=== PATIENT | female | born 1975 | race Caucasian/White ===

== ENCOUNTER 2022-04-29 00:01 | Emergency (ER) | payer MEDICAID, OTHER ==
[~2022-04-29] VITALS: Ht 170.2 cm; Wt 74.8 kg
--- NOTE | 2022-04-29 00:47 | NUR ---
Patient placed in room 3A at this time.
[2022-04-29] MEDS ORDERED: CYCLOBENZAPRINE HCL 10 MG TABLET PO ONE (02:00)
[2022-04-29] MEDS ORDERED: DIAZEPAM 10 MG/2 ML DISP.SYRIN IV ONE ×2 (02:00→04:30)
[2022-04-29] MEDS ORDERED: IV NORMAL SALINE 1000 ML BAG IV ONE (02:00)
[2022-04-29] MEDS ORDERED: CYCLOBENZAPRINE HCL 10 MG TABLET ONE (02:11)
[2022-04-29] MEDS ORDERED: DIAZEPAM 10 MG/2 ML DISP.SYRIN ONE ×2 (02:12→04:48)
[2022-04-29] MEDS ORDERED: HYDROCODONE/APAP 5-325MG TABLET PO ONE (03:00)
[2022-04-29] MEDS ORDERED: HYDROCODONE/APAP 5-325MG TABLET ONE (03:03)
[2022-04-29] MEDS ORDERED: METHOCARBAMOL 500 MG TABLET PO ONE (04:30)
[2022-04-29] MEDS ORDERED: METHOCARBAMOL 500 MG TABLET ONE (04:48)
--- NOTE | 2022-04-29 05:20 | NUR ---
Patient was taken to CT.
--- NOTE | 2022-04-29 05:33 | NUR ---
Patient returned from CT.
[2022-04-29] MEDS ORDERED: MORPHINE SULFATE 4 MG/1 ML DISP.SYRIN IV ONE (06:15)
[2022-04-29] MEDS ORDERED: IV NORMAL SALINE 500 ML BAG IV ONE (06:15)
[2022-04-29] MEDS ORDERED: MORPHINE SULFATE 4 MG/1 ML DISP.SYRIN ONE (06:21)
--- NOTE | 2022-04-29 07:20 | NUR ---
Gave report to Fredrick MILAN.
--- NOTE | 2022-04-29 07:30 | NUR ---
Rassessment done in previous shift, not noted.
[2022-04-29] MEDS ORDERED: DICL100G31 TP (09:25)
[2022-04-29] MEDS ORDERED: HYDR-4209 PO (09:25)
--- NOTE | 2022-04-29 09:30 | NUR ---
Pt still c/o 08/29 left leg pain. Pt given RX and d/c instructions, pt verbalized understanding. Instructed not to drive.
--- NOTE | 2022-04-29 09:31 | NUR ---
Removed IV intact, site benign, bandaged.
== END 2022-04-29 09:49 | disposition home or self-care (01) ==
LOC: ER 00:08
DX: S76.892A Other injury of other specified muscles, fascia and tendons at thigh level, left thigh, initial encounter (principal); X50.0XXA Overexertion from strenuous movement or load, initial encounter; Y93.01 Activity, walking, marching and hiking; Y92.89 Other specified places as the place of occurrence of the external cause; Z88.6 Allergy status to analgesic agent; R26.2 Difficulty in walking, not elsewhere classified; M79.652 Pain in left thigh
CPT/HCPCS: 99285; 96374; 96361; 73700; 96375; 73521; 73562; 96376; J3360 ×2; J2270; J7040 ×2; A4663